=== PATIENT | male | born 1935 | race Caucasian/White ===

== ENCOUNTER 2017-10-20 06:08 | Inpatient (IN) | payer MEDICARE ==
[~2017-10-20] VITALS: Ht 177.8 cm; Wt 89.4 kg
[2017-10-20] VITALS (7 sets, daily range): BP systolic 142–168; BP diastolic 63–84
--- NOTE | ~2017-10-20 | CON ---
[place], [place] REPORT OF CONSULTATION NAME: [id number] UNIT #: [id number] ROOM: 425 DOCTOR: AMPARO RIGGINS,DECEMBER BIRTHDATE: [birth year] DOS: 10/20/2017 HISTORY OF PRESENT ILLNESS: The patient is a pleasant 81-year-old male, alert and oriented, who was admitted from home for generalized weakness. He had been sick for the last 2-3 days with a dry cough and stuffy nose. He has had max temperature of 100.2. His and he states that he has not had any fevers or chills at home. He did fall again with his generalized weakness. He tested positive for influenza A. He was started on Tamiflu. The chest x-ray shows a possible left lingular pneumonia. I did review the chest x-ray film. The patient states he is feeling better since admitted. He was given Rocephin and Zithromax on admission. Urine culture was done. I do not see any blood cultures. His white count is normal on admission, 8.7. He did have, approximately a month ago, hernia repair. PAST MEDICAL HISTORY: As above as well as coronary artery disease, GERD, hyperlipidemia, hypertension, vitamin D deficiency, back surgery approximately 10 years ago, umbilical hernia repair 09/21/2017, CABG approximately 10 years ago. SOCIAL HISTORY: for 62 years. Nonsmoker, nondrinker, no illicit drug use. FAMILY MEDICAL HISTORY: Mother and father both of old age. ALLERGIES: Only TO PENICILLIN. CURRENT MEDICATIONS: Lovenox, Tamiflu, Rocephin, Zithromax, acetaminophen, Restoril, Zofran, [place], Tylenol. LABORATORY DATA: Cultures as reviewed above. WBC is 8.7, platelets 177, BUN 14, creatinine 1.03. LFTs within normal limits. His troponin was slightly elevated at 0.047. C-reactive protein 1.6, lipase 67. REVIEW OF SYSTEMS: As above in history of present illness. No nausea or vomiting. No rash or itch. Again, little dry cough, no shortness of breath. No rash. He has a very low peripheral edema, had generalized weakness, fell prior to admission. He has only been sick for 2 or 3 days. He is not aware of any fevers or shaking chills other than the one low grade temperature that was reported here at 100.2. Further review of systems is unremarkable. PHYSICAL EXAMINATION: VITAL SIGNS: Temperature 97.9, pulse 76, respirations 18, BP 148/65: GENERAL: Alert and oriented, 81-year-old male, nontoxic in appearance. HEAD, EYES, EARS, NOSE AND THROAT: Normocephalic, no thrush. LUNGS: Clear to auscultation bilaterally. Respirations even and unlabored. HEART: Regular rhythm. No murmur appreciated. ABDOMEN: Soft, nontender, nondistended, positive bowel sounds. EXTREMITIES: Trace edema, bilateral lower extremities. SKIN: Warm, dry, free of rashes. [place], [place] REPORT OF CONSULTATION NAME: REBEKAH VANG UNIT #: [id number] ROOM: 425 DOCTOR: AMPARO RIGGINSDECEMBER BIRTHDATE: [birth year] ASSESSMENT AND PLAN: Influenza A with questionable pneumonia. He is not impressive for pneumonia given his normal white count, max temperature of 100.2. He has only been sick for a couple of days. I doubt that he has a bacterial pneumonia. We will do CT of the chest without contrast to confirm, at which time if it comes back without infiltrates, we can stop all the antibiotics. In the meantime, we will give him one dose of vancomycin pending his workup as MRSA should be covered if he truly has influenza-related pneumonia. Case discussed with Dr. Kayla Kee. Continue the Tamiflu for a total of 10 doses. ASHELY CHRISTENSEN CNP KAYLA KEE MD CM:CONSTR:REPORT OF CONSULTATION 1736 10/20/17 2229 interface
--- NOTE | ~2017-10-20 | PR ---
[place], [place] PROGRESS NOTE NAME: REBEKAH VANG UNIT #: [id number] ROOM: 425 DOCTOR: VIDHYA STARKS,KAYLA Damon BIRTHDATE: [birth year] DOS: 10/22/2017 ADDENDUM I agree with the plans as described above. We will follow the patient up clinically and adjust accordingly. KAYLA KEE MD CM:PNTRANS [id number] KAYLA KEE MD 10/24/17 0928 interface
--- NOTE | ~2017-10-20 | PR ---
[place], [place] PROGRESS NOTE NAME: REBEKAH VANG [facility] #: [id number] UNIT #: [id number] ROOM: 425 DOCTOR: AMPARO RIGGINS,DECEMBER BIRTHDATE: [birth year] DOS: SUBJECTIVE: The patient is a pleasant 81-year-old male who is being followed for influenza. He was positive for influenza A. He had a CT of the chest done which did not demonstrate any infiltrate. His antibiotics were appropriately stopped. He remains on Tamiflu. He has been afebrile. He is feeling better. The concern at this point is he had a little bit of hematuria a few days ago and then again today. His urine has shown no sign of infection. He has had two UAs, both of which were negative for leukocyte esterase. There was no pyuria. He has not been having dysuria, other than he states the very last time he urinated to obtain a sample when he had some blood. He had a few drops at the end of his stream. Labs show WBC 3.5, platelets 139. BUN 12, creatinine 0.9. He has again still nonproductive cough. No shortness of breath. No nausea, vomiting or diarrhea. No rash or itch. No peripheral edema. He is not having any pain anywhere. No back or flank pain. OBJECTIVE: VITAL SIGNS: Temperature 98.3, pulse 64, respirations 18, BP 152/58. GENERAL: An 81-year-old male, in no acute distress. HEAD, EYES, EARS, NOSE AND THROAT: Normocephalic. No thrush. LUNGS: Clear to auscultation bilaterally. Respirations even and unlabored. HEART: Regular rhythm. No murmur appreciated. ABDOMEN: Soft, nontender. Where he had umbilical hernia surgery a month ago is unremarkable. EXTREMITIES: No edema or deformity. SKIN: Warm, dry, free of rashes. BACK: No CVA tenderness. ASSESSMENT: Influenza A, pneumonia has been ruled out. PLAN: Antibiotics were stopped. He needs to complete a total of 5 days of Tamiflu. He also has a new painless hematuria that has been intermittent over the last several days. He needs urology workup. Urology is not available currently here. Anticipate he will probably be discharged tomorrow. I discussed with him and his family and hopefully he should have a Urology evaluation set up as an outpatient for his hematuria. There is no history of stones and he is not symptomatic for them otherwise. ASHELY CHRISTENSEN CNP [place], [place] PROGRESS NOTE NAME: REBEKAH VANG UNIT #: [id number] ROOM: 425 DOCTOR: AMPARO RIGGINSDECEMBER BIRTHDATE: [birth year] KAYLA KEE MD CM:PNTRANS 11 [phone] AMPARO RIGGINS 10/23/17 1719 interface
--- NOTE | ~2017-10-20 | CON ---
[place], [place] REPORT OF CONSULTATION NAME: REBEKAH VANG UNIT #: [id number] ROOM: 425 DOCTOR: VIDHYA STARKS,KAYLA Damon BIRTHDATE: [birth year] DOS: 10/20/2017 ADDENDUM After reviewing the chart, labs and microbiology, I agree with the above plans as described. We will follow the patient up clinically and adjust accordingly. KAYLA KEE MD CM:CONSTR:REPORT OF CONSULTATION 0700 10/23/17 0842 interface
[~2017-10-20 06:08] MED LIST: ANTIVERT/2525 MG PO
[2017-10-20 07:25] LABS: BASO % 0.1 % (0.0-1.0); HEMATOCRIT 39.7 % (42.0-52.0); HEMOGLOBIN 13.5 g/dl (14.0-18.0); LYMPH # 0.5 10*3/uL (1.3-4.4); LYMPH % 6.1 % (27.0-41.0); MEAN CELL VOLUME 97.1 fl (80.0-94.0); MEAN PLATELET VOLUME 10.2 fl (9.6-12.3); MONO # 0.8 10*3/uL (0.1-1.0); MONO % 8.8 % (3.0-9.0); NEUT # 7.4 10*3/uL (2.3-7.9); NEUT % 84.8 % (47.0-73.0); PLATELET COUNT AUTOMATED 177 10*3/uL (130-400); RED BLOOD COUNT 4.09 10*6/uL (4.50-5.90); WHITE BLOOD COUNT 8.7 10*3/uL (4.8-10.8)
[2017-10-20 07:35] LABS: ACT PARTIAL THROMBO TIME 26.2 SECONDS (20.8-31.5); INTERNATIONAL NORM RATIO 1.2 (2.0-3.5)
[2017-10-20 07:42] LABS: ALBUMIN 3.4 gm/dl (3.1-4.5); ALKALINE PHOSPHATASE 68 U/L (45-117); BUN 14 mg/dl (7-24); CHLORIDE 100 mmol/L (98-107); CREATININE 1.03 mg/dL (0.70-1.30); LIPASE 67 U/L (73-393); POTASSIUM 3.8 mmol/L (3.5-5.1); SGOT/AST 33 IU/L (3-35); SGPT/ALT 21 U/L (12-78); SODIUM 138 mmol/L (136-145); TOTAL PROTEIN 7.4 gm/dL (6.4-8.2)
[2017-10-20 07:43] LABS: ETHYL ALCOHOL < 3.0 mg/dl (<3); TROPONIN I 0.047 ng/ml (<0.045)
[2017-10-20 10:18] LABS: BILIRUBIN NEGATIVE (NEGATIVE); BLOOD 2+ (NEGATIVE); CLARITY CLEAR (CLEAR); COLOR YELLOW (YELLOW); GLUCOSE NEGATIVE (NEGATIVE); KETONE 1+ (NEGATIVE); LEUKO ESTERASE NEGATIVE (NEGATIVE); NITRITE NEGATIVE (NEGATIVE); PH 5.5 (5.0-9.0); UROBILINOGEN 0.2 E.U./dl (0.2-1.0)
[2017-10-20 10:35] LABS: BACTERIA TRACE; EPITHELIAL CELLS 0-2; MUCOUS 1+; WBC 0-2 wbc/hpf (0-5)
[2017-10-20] MEDS ORDERED: ECOTRIN81 M1 PO (10:55)
[2017-10-20] MEDS ORDERED: LOVASTATIN40 MG PO (10:56)
[2017-10-20] MEDS ORDERED: ZESTRIL10 MG PO (10:56)
[2017-10-20] MEDS ORDERED: METFORMIN1000 MG PO (10:56)
[2017-10-20] MEDS ORDERED: HYDROCODON-ACE1 EACH PO (10:57)
[2017-10-20] MEDS ORDERED: FAMOTIDINE40 MG PO (10:59)
[2017-10-20] MEDS ORDERED: VITAMIN D400 I1 PO (11:02)
[2017-10-21] VITALS: BP 127/55
[2017-10-21 05:58] LABS: BASO % 0.3 % (0.0-1.0); EOS % 0.3 % (1.0-4.0); HEMATOCRIT 38.1 % (42.0-52.0); HEMOGLOBIN 12.8 g/dl (14.0-18.0); LYMPH # 0.9 10*3/uL (1.3-4.4); LYMPH % 25.3 % (27.0-41.0); MEAN CELL VOLUME 98.4 fl (80.0-94.0); MEAN CORPUSCULAR HGB 33.1 pg (27.0-31.0); MEAN CORPUSCULAR HGB CONC 33.6 g/dl (33.0-37.0); MEAN PLATELET VOLUME 10.1 fl (9.6-12.3); MONO # 0.6 10*3/uL (0.1-1.0); MONO % 16.1 % (3.0-9.0); NEUT # 2.1 10*3/uL (2.3-7.9); NEUT % 57.7 % (47.0-73.0); PLATELET COUNT AUTOMATED 152 10*3/uL (130-400); RED BLOOD COUNT 3.87 10*6/uL (4.50-5.90); RED CELL DISTRI WIDTH 13.2 % (0-14.5); WHITE BLOOD COUNT 3.7 10*3/uL (4.8-10.8)
[2017-10-21 06:17] LABS: ALBUMIN 2.7 gm/dl (3.1-4.5); BUN 12 mg/dl (7-24); CHLORIDE 108 mmol/L (98-107); CHOLESTEROL 104 mg/dL (<200); CREATININE 0.99 mg/dL (0.70-1.30); HDL CHOLESTEROL 44 mg/dl (40-60); LDL CHOLESTEROL 48 mg/dL (9-159); POTASSIUM 3.6 mmol/L (3.5-5.1); SGOT/AST 41 IU/L (3-35); SODIUM 143 mmol/L (136-145); TRIGLYCERIDES 59 mg/dl (<150); VLDL CHOLESTEROL 12 mg/dL (6-40)
[2017-10-21 06:24] LABS: ALKALINE PHOSPHATASE 52 U/L (45-117); SGPT/ALT 21 U/L (12-78)
[2017-10-21 08:00] VITALS: BP 141/54
[2017-10-21 12:00] VITALS: BP 136/73
[2017-10-21 16:00] VITALS: BP 155/71
[2017-10-21 20:00] VITALS: BP 171/80
[2017-10-22] VITALS: BP 157/65
[2017-10-22 07:04] LABS: BASO % 0.6 % (0.0-1.0); EOS # 0.1 10*3/uL (0.0-0.4); EOS % 2.6 % (1.0-4.0); HEMATOCRIT 35.8 % (42.0-52.0); HEMOGLOBIN 11.9 g/dl (14.0-18.0); LYMPH # 1.1 10*3/uL (1.3-4.4); LYMPH % 30.2 % (27.0-41.0); MEAN CELL VOLUME 99.2 fl (80.0-94.0); MEAN CORPUSCULAR HGB CONC 33.2 g/dl (33.0-37.0); MEAN PLATELET VOLUME 10.5 fl (9.6-12.3); MONO # 0.4 10*3/uL (0.1-1.0); MONO % 10.3 % (3.0-9.0); PLATELET COUNT AUTOMATED 139 10*3/uL (130-400); RED BLOOD COUNT 3.61 10*6/uL (4.50-5.90); RED CELL DISTRI WIDTH 13.1 % (0-14.5); WHITE BLOOD COUNT 3.5 10*3/uL (4.8-10.8)
[2017-10-22 07:32] LABS: BUN 12 mg/dl (7-24); CHLORIDE 110 mmol/L (98-107); POTASSIUM 3.5 mmol/L (3.5-5.1); SODIUM 143 mmol/L (136-145)
[2017-10-22 08:00] VITALS: BP 150/69
[2017-10-22 12:00] VITALS: BP 152/79
[2017-10-22 16:00] VITALS: BP 152/58
[2017-10-22 18:12] LABS: BILIRUBIN NEGATIVE (NEGATIVE); BLOOD 3+ (NEGATIVE); COLOR RED (YELLOW); GLUCOSE 1+ (NEGATIVE); KETONE NEGATIVE (NEGATIVE); LEUKO ESTERASE NEGATIVE (NEGATIVE); NITRITE NEGATIVE (NEGATIVE); SPECIFIC GRAVITY 1.015 (1.005-1.030)
[2017-10-22 18:15] LABS: CLARITY SL CLOUDY (CLEAR)
[2017-10-22 18:22] LABS: RBC TNTC rbc/hpf (0-2)
[2017-10-22 20:00] VITALS: BP 170/80
[2017-10-23] VITALS: BP 164/80
[2017-10-23 05:51] LABS: HEMATOCRIT 35.8 % (42.0-52.0); HEMOGLOBIN 11.9 g/dl (14.0-18.0); MEAN CELL VOLUME 99.2 fl (80.0-94.0); MEAN CORPUSCULAR HGB CONC 33.2 g/dl (33.0-37.0); MEAN PLATELET VOLUME 10.1 fl (9.6-12.3); PLATELET COUNT AUTOMATED 127 10*3/uL (130-400); RED BLOOD COUNT 3.61 10*6/uL (4.50-5.90); RED CELL DISTRI WIDTH 12.9 % (0-14.5); WHITE BLOOD COUNT 3.6 10*3/uL (4.8-10.8)
[2017-10-23 06:56] LABS: BASOPHILS 1 % (0-1); BURR CELLS FEW; PLATELET SUFFICIENCY LOW (NORMAL); TOTAL CELLS COUNTED 100 #CELLS
[2017-10-23 08:00] VITALS: BP 146/53; BP 156/76
[2017-10-23] MEDS ORDERED: TAMIFLU 75MG CA75 MG PO (10:05)
== END 2017-10-23 10:30 | disposition home or self-care (01) | DRG 194 ==
LOC: ED 06:08 → 4E 09:14 → EDHOLD 09:14 → 4E 09:42
PROVIDERS: Emergency Medicine Emergency Medical Services; Family Medicine; Internal Medicine; Student in an Organized Health Care Education/Training Program
DX: J10.08 Influenza due to other identified influenza virus with other specified pneumonia (principal); I25.810 Atherosclerosis of coronary artery bypass graft(s) without angina pectoris; R31.0 Gross hematuria; I65.23 Occlusion and stenosis of bilateral carotid arteries; D50.9 Iron deficiency anemia, unspecified; T79.6XXA Traumatic ischemia of muscle, initial encounter; J18.0 Bronchopneumonia, unspecified organism; E78.5 Hyperlipidemia, unspecified; I10 Essential (primary) hypertension; R73.9 Hyperglycemia, unspecified; E55.9 Vitamin D deficiency, unspecified; K21.9 Gastro-esophageal reflux disease without esophagitis; R41.3 Other amnesia; W01.198A Fall on same level from slipping, tripping and stumbling with subsequent striking against other object, initial encounter; Y93.89 Activity, other specified; Y92.89 Other specified places as the place of occurrence of the external cause; Y99.8 Other external cause status; Z68.28 Body mass index [BMI] 28.0-28.9, adult; Z79.82 Long term (current) use of aspirin; Z79.84 Long term (current) use of oral hypoglycemic drugs; Z79.899 Other long term (current) drug therapy; Z98.41 Cataract extraction status, right eye; Z88.0 Allergy status to penicillin; Z82.49 Family history of ischemic heart disease and other diseases of the circulatory system; Z82.3 Family history of stroke

== ENCOUNTER → 2019-08-01 | Outpatient (CLI) | payer MEDICARE ==
[~2019-08-01] MED LIST changes: +ECOTRIN81 M1 PO; +FAMOTIDINE40 MG PO; +HYDROCODON-ACE1 EACH PO; +LOVASTATIN40 MG PO; +METFORMIN1000 MG PO; +TAMIFLU 75MG CA75 MG PO; +VITAMIN D400 I1 PO; +ZESTRIL10 MG PO
== END | disposition home or self-care (01) ==
LOC: US 12:57
DX: I73.9 Peripheral vascular disease, unspecified (principal); E11.9 Type 2 diabetes mellitus without complications; I10 Essential (primary) hypertension; Z95.1 Presence of aortocoronary bypass graft

== ENCOUNTER → 2020-10-30 | Outpatient (CLI) | payer MEDICARE ==
[~2020-10-30] MED LIST changes: +FUROSEMIDE20 M1 PO; +Humalog SQ; +POTASSIUM CHLO10 ME5 PO
== END | disposition home or self-care (01) ==
LOC: US 11:30
PROVIDERS: ATTEND Physician Assistant
DX: M79.662 Pain in left lower leg (principal); R60.0 Localized edema

== ENCOUNTER 2020-11-06 15:22 | Inpatient (IN) | payer MEDICARE ==
[~2020-11-06] VITALS: Ht 170.2 cm; Wt 71.4 kg
[~2020-11-06 15:22] MED LIST changes: -FUROSEMIDE20 M1 PO; -Humalog SQ; -POTASSIUM CHLO10 ME5 PO
[2020-11-06 15:28] VITALS: BP 183/78
[2020-11-06 16:01] LABS: BASO % 0.2 % (0.0-1.0); EOS % 0.1 % (1.0-4.0); LYMPH # 0.8 10*3/uL (1.3-4.4); LYMPH % 8.7 % (27.0-41.0); MEAN CELL VOLUME 97.6 fl (80.0-94.0); MEAN CORPUSCULAR HGB 32.4 pg (27.0-31.0); MEAN CORPUSCULAR HGB CONC 33.3 g/dl (33.0-37.0); MEAN PLATELET VOLUME 9.7 fl (9.6-12.3); MONO # 0.5 10*3/uL (0.1-1.0); MONO % 5.8 % (3.0-9.0); NEUT # 7.9 10*3/uL (2.3-7.9); NEUT % 85.1 % (47.0-73.0); PLATELET COUNT AUTOMATED 276 10*3/uL (130-400); RED CELL DISTRI WIDTH 13.1 % (0-14.5); WHITE BLOOD COUNT 9.3 10*3/uL (4.8-10.8)
[2020-11-06 16:11] LABS: ACT PARTIAL THROMBO TIME 25.4 SECONDS (20.0-32.1); INTERNATIONAL NORM RATIO 1.1 (2.0-3.5)
[2020-11-06 16:16] LABS: ALBUMIN 3.2 gm/dl (3.1-4.5); ALKALINE PHOSPHATASE 93 U/L (45-117); BUN 13 mg/dl (7-24); CHLORIDE 108 mmol/L (98-107); CREATININE 1.24 mg/dL (0.70-1.30); POTASSIUM 4.1 mmol/L (3.5-5.1); SGOT/AST 10 IU/L (3-35); SGPT/ALT 10 U/L (12-78); SODIUM 142 mmol/L (136-145); TOTAL PROTEIN 7.2 gm/dL (6.4-8.2)
[2020-11-06 19:20] VITALS: BP 154/78
[2020-11-06] MEDS ORDERED: FUROSEMIDE20 M1 PO (19:33)
[2020-11-06] MEDS ORDERED: POTASSIUM CHLO10 ME5 PO (19:34)
[2020-11-06 20:22] VITALS: BP 154/68
[2020-11-06 23:12] VITALS: BP 182/78
[2020-11-07 07:21] LABS: BASO % 0.4 % (0.0-1.0); EOS % 0.5 % (1.0-4.0); HEMATOCRIT 37.9 % (42.0-52.0); LYMPH # 1.1 10*3/uL (1.3-4.4); LYMPH % 13.5 % (27.0-41.0); MEAN CELL VOLUME 98.4 fl (80.0-94.0); MEAN CORPUSCULAR HGB 31.9 pg (27.0-31.0); MEAN CORPUSCULAR HGB CONC 32.5 g/dl (33.0-37.0); MEAN PLATELET VOLUME 9.6 fl (9.6-12.3); MONO # 0.6 10*3/uL (0.1-1.0); MONO % 7.4 % (3.0-9.0); NEUT # 6.1 10*3/uL (2.3-7.9); NEUT % 77.9 % (47.0-73.0); PLATELET COUNT AUTOMATED 238 10*3/uL (130-400); RED BLOOD COUNT 3.85 10*6/uL (4.50-5.90); RED CELL DISTRI WIDTH 13.2 % (0-14.5); WHITE BLOOD COUNT 7.9 10*3/uL (4.8-10.8)
[2020-11-07 07:43] LABS: BUN 12 mg/dl (7-24); CHLORIDE 106 mmol/L (98-107); CHOLESTEROL 164 mg/dL (<200); CREATININE 1.15 mg/dL (0.70-1.30); POTASSIUM 3.9 mmol/L (3.5-5.1); SODIUM 140 mmol/L (136-145)
[2020-11-07 07:46] LABS: HDL CHOLESTEROL 41 mg/dl (40-60); LDL CHOLESTEROL 96 mg/dL (9-159); TRIGLYCERIDES 134 mg/dl (<150); VLDL CHOLESTEROL 27 mg/dL (6-40)
[2020-11-07 08:00] VITALS: BP 132/78
[2020-11-07 08:11] LABS: VITAMIN D, 25-HYDROXY 28.1 ng/mL (30-100)
[2020-11-07 12:00] VITALS: BP 134/73
[2020-11-07 16:00] VITALS: BP 120/64
[2020-11-07 20:00] VITALS: BP 154/68
[2020-11-08] VITALS: BP 131/72
[2020-11-08 08:00] VITALS: BP 150/65
[2020-11-08 12:00] VITALS: BP 149/71
[2020-11-08 16:00] VITALS: BP 145/73
[2020-11-08 20:00] VITALS: BP 107/51
[2020-11-09] VITALS: BP 173/76
[2020-11-09 03:55] LABS: BILIRUBIN Negative (Negative); BLOOD Negative (Negative); CLARITY Clear (Clear); COLOR Yellow (Yellow); GLUCOSE Negative (Negative); KETONE Negative (Negative); LEUKO ESTERASE Negative (Negative); NITRITE Negative (Negative); PH 5.5 (4.5-8.0); UROBILINOGEN 0.2 E.U./dl (0.0-1.0)
[2020-11-09 04:05] LABS: RBC 0-2 rbc/hpf (0-2); WBC 0-2 wbc/hpf (0-5)
[2020-11-09 08:00] VITALS: BP 161/64
[2020-11-09 12:00] VITALS: BP 150/77
[2020-11-09 16:00] VITALS: BP 128/74
[2020-11-09 20:00] VITALS: BP 180/76
[2020-11-09 23:42] VITALS: BP 160/70
[2020-11-10 06:37] LABS: BASO % 0.6 % (0.0-1.0); EOS # 0.3 10*3/uL (0.0-0.4); EOS % 3.6 % (1.0-4.0); HEMATOCRIT 40.4 % (42.0-52.0); LYMPH # 1.6 10*3/uL (1.3-4.4); LYMPH % 22.4 % (27.0-41.0); MEAN CELL VOLUME 97.8 fl (80.0-94.0); MEAN CORPUSCULAR HGB 32.4 pg (27.0-31.0); MEAN CORPUSCULAR HGB CONC 33.2 g/dl (33.0-37.0); MEAN PLATELET VOLUME 9.9 fl (9.6-12.3); MONO # 0.5 10*3/uL (0.1-1.0); MONO % 6.7 % (3.0-9.0); NEUT # 4.7 10*3/uL (2.3-7.9); NEUT % 66.3 % (47.0-73.0); PLATELET COUNT AUTOMATED 308 10*3/uL (130-400); RED BLOOD COUNT 4.13 10*6/uL (4.50-5.90); RED CELL DISTRI WIDTH 12.9 % (0-14.5); WHITE BLOOD COUNT 7.1 10*3/uL (4.8-10.8)
[2020-11-10 08:00] VITALS: BP 179/70
[2020-11-10 12:00] VITALS: BP 152/75
[2020-11-10] MEDS ORDERED: Humalog SQ (12:40)
== END 2020-11-10 14:03 | DRG 884 ==
LOC: ED 15:22 → 5E 16:27 → EDHOLD 16:27 → 5E 20:42
PROVIDERS: Internal Medicine; Nurse Practitioner Family; ADMIT Emergency Medicine; ATTEND Emergency Medicine
DX: R54 Age-related physical debility (principal); G93.41 Metabolic encephalopathy; R26.2 Difficulty in walking, not elsewhere classified; D53.9 Nutritional anemia, unspecified; E87.8 Other disorders of electrolyte and fluid balance, not elsewhere classified; K21.9 Gastro-esophageal reflux disease without esophagitis; I25.10 Atherosclerotic heart disease of native coronary artery without angina pectoris; E55.9 Vitamin D deficiency, unspecified; Z20.822 Contact with and (suspected) exposure to COVID-19; E78.5 Hyperlipidemia, unspecified; I10 Essential (primary) hypertension; R13.10 Dysphagia, unspecified; R63.4 Abnormal weight loss; E11.65 Type 2 diabetes mellitus with hyperglycemia; Z78.9 Other specified health status; Z88.0 Allergy status to penicillin; Z82.41 Family history of sudden cardiac death; Z98.41 Cataract extraction status, right eye; Z82.49 Family history of ischemic heart disease and other diseases of the circulatory system